=== PATIENT | male | born 1975 | race Asian ===

== ENCOUNTER 2022-12-24 17:00 | Outpatient (CLI) | payer BC | END 2022-12-24 17:01 | disposition home or self-care (01) | LOC: SLEEPLAB 17:00 | PROVIDERS: ATTEND Internal Medicine | DX: G47.33 Obstructive sleep apnea (adult) (pediatric) (principal); R06.83 Snoring; I63.9 Cerebral infarction, unspecified; I10 Essential (primary) hypertension; G47.10 Hypersomnia, unspecified; G47.00 Insomnia, unspecified | CPT/HCPCS: 95811 ==

== ENCOUNTER 2024-01-26 08:52 | Observation (INO) | payer BC ==
[2024-01-26 09:11] LABS: #Basophils 0.05 10x3/uL (0.0-0.2); %Basophils 0.6 % (0.0-1.0); %Eosinophils 5.9 % (0.0-10.0); %Lymphocytes 14.2 % (21.0-51.0); %Monocytes 5.7 % (0.0-10.0); %Neutrophils 73.4 % (42.0-75.0); Hematocrit 42.1 % (42.0-52.0); Hemoglobin 13.9 g/dL (14.0-18.0); Mean Corpuscular Hemoglobin 28.8 pg (27.0-31.0); Mean Corpuscular Volume 87.3 fL (78.0-98.0); Mean Platelet Volume 10.5 fL (7.4-10.4); Platelet Count 249 10x3/uL (130-400); RBC Distribution Width 13.6 % (11.5-14.5); Red Blood Cell (RBC) Count 4.82 mill/uL (4.70-6.10)
[2024-01-26 09:28] LABS: INR-International Normal Ratio 0.9
[2024-01-26 09:29] LABS: PTT 33.2 sec (22.9-36.1)
[2024-01-26] MEDS ORDERED: Senokot S 8.6-50 MG TAB PO PRN (13:08)
[2024-01-26] MEDS ORDERED: Acetaminophen 325 MG TAB PO PRN (13:08)
[2024-01-26] MEDS ORDERED: Ondansetron ODT 4 MG TAB PO PRN (13:08)
[2024-01-26] MEDS ORDERED: Ondansetron PF 4 MG/2 ML Vial IVP PRN (13:08)
[2024-01-26] MEDS ORDERED: Acetaminophen 650 MG Suppository PR PRN (13:08)
[2024-01-26] MEDS ORDERED: Midazolam HCl 2 mg/2 ml Vial ONE (14:50)
[2024-01-26] MEDS ORDERED: fentaNYL 50 mcg/mL 1 mL Vial ONE (14:50)
[2024-01-26] MEDS ORDERED: Sodium Bicarbonate 2.5 MEQ/5 ML SDV ONE (14:51)
[2024-01-26] MEDS ORDERED: hydrALAZINE 20 MG/ML VIAL ONE (15:46)
[2024-01-26] MEDS ORDERED: Metoprolol Tartrate 5 MG (5 mL) VIAL ONE (15:59)
[2024-01-26] MEDS: Carvedilol 25 MG TAB PO SCH (17:57)
[2024-01-26] MEDS: hydrALAZINE 25 MG TAB PO SCH (21:05)
[2024-01-26] MEDS ORDERED: hydrALAZINE 20 MG/ML VIAL SLOW IVP PRN (22:43)
[2024-01-27 06:16] LABS: #Basophils 0.04 10x3/uL (0.0-0.2); %Basophils 0.4 % (0.0-1.0); %Eosinophils 4.4 % (0.0-10.0); %Lymphocytes 12.6 % (21.0-51.0); %Monocytes 6.5 % (0.0-10.0); %Neutrophils 75.9 % (42.0-75.0); Hematocrit 40.5 % (42.0-52.0); Hemoglobin 13.6 g/dL (14.0-18.0); Mean Corpuscular HGB CONC 33.6 g/dL (32.0-36.0); Mean Corpuscular Volume 86.4 fL (78.0-98.0); Mean Platelet Volume 11.2 fL (7.4-10.4); Platelet Count 226 10x3/uL (130-400); RBC Distribution Width 13.9 % (11.5-14.5); Red Blood Cell (RBC) Count 4.69 mill/uL (4.70-6.10)
[2024-01-27 06:37] LABS: Anion Gap 14 mmol/L (10-20); BUN (Urea Nitrogen) 37 mg/dL (8.9-20.6); Calc. Creatinine Clearance 0 mL/min (70-130); Calcium 8.7 mg/dL (7.8-10.44); Carbon Dioxide 20 mmol/L (22-29); Chloride 106 mmol/L (98-107); Estimated GFR 35; Glucose 95 mg/dL (70-105); Potassium 3.2 mmol/L (3.5-5.1); Sodium 137 mmol/L (136-145)
[2024-01-27] MEDS: Amlodipine 10 MG TAB PO SCH (08:53)
[2024-01-27] MEDS: hydrALAZINE 25 MG TAB PO SCH (08:53)
[2024-01-27 08:54] VITALS: BP 158/92
[2024-01-27 09:22] VITALS: TEMP 98.2
[2024-01-27] MEDS ORDERED: Atorvastatin Calcium 20 MG TAB PO SCH (21:00)
== END 2024-01-27 13:14 | disposition home or self-care (01) ==
LOC: CT 08:52 → T4-B 13:07
PROVIDERS: ADMIT Internal Medicine Nephrology; ATTEND Internal Medicine Nephrology
PROC: 0TB13ZX Excision of Left Kidney, Percutaneous Approach, Diagnostic (ICD-10-PCS; principal; 2024-01-27)
DX: I12.9 Hypertensive chronic kidney disease with stage 1 through stage 4 chronic kidney disease, or unspecified chronic kidney disease (principal); N18.30 Chronic kidney disease, stage 3 unspecified; D63.1 Anemia in chronic kidney disease; R60.0 Localized edema; R80.9 Proteinuria, unspecified; E55.9 Vitamin D deficiency, unspecified; E66.9 Obesity, unspecified; E78.5 Hyperlipidemia, unspecified; G47.33 Obstructive sleep apnea (adult) (pediatric); Z98.890 Other specified postprocedural states; Z79.899 Other long term (current) drug therapy; Z86.73 Personal history of transient ischemic attack (TIA), and cerebral infarction without residual deficits; Z86.718 Personal history of other venous thrombosis and embolism
CPT/HCPCS: 36415; 50200; 77012; 80048; 85025; 85610; 85730; 88329; 99152; 99153; G0378; J0360; J2250; J3010